=== PATIENT | male | born 1985 | race African-American/Black ===

== ENCOUNTER 2018-06-29 18:52 | Emergency (ER) | payer MEDICAID, OTHER ==
[~2018-06-29] VITALS: Ht 190.5 cm; Wt 79.0 kg
[2018-06-29 21:35] VITALS: BP 127/78
== END 2018-06-29 21:41 | disposition home or self-care (01) ==
LOC: ER 18:52
DX: H61.22 Impacted cerumen, left ear (principal); H66.92 Otitis media, unspecified, left ear; F12.10 Cannabis abuse, uncomplicated
CPT/HCPCS: 69209; 99283

== ENCOUNTER 2018-12-13 18:59 | Emergency (ER) | payer MEDICAID ==
[~2018-12-13] VITALS: Ht 193 cm; Wt 75.0 kg
[2018-12-13 19:08] VITALS: BP 132/65
== END 2018-12-13 20:20 | disposition left against medical advice (07) ==
LOC: ER 18:59
DX: H92.02 Otalgia, left ear (principal); Z53.21 Procedure and treatment not carried out due to patient leaving prior to being seen by health care provider

== ENCOUNTER 2019-09-23 10:52 | Emergency (ER) | payer MEDICAID ==
[~2019-09-23] VITALS: Ht 193 cm; Wt 91.0 kg
[2019-09-23] MEDS ORDERED: IBUPROFEN 600MG TABLET PO ONE (11:30)
[2019-09-23 11:46] VITALS: BP 128/89
== END 2019-09-23 11:53 | disposition home or self-care (01) ==
LOC: ER 10:52
DX: M54.2 Cervicalgia (principal); R03.0 Elevated blood-pressure reading, without diagnosis of hypertension
CPT/HCPCS: 99282

== ENCOUNTER 2021-01-23 08:19 | Emergency (ER) | payer MEDICAID ==
[~2021-01-23] VITALS: Ht 185.4 cm; Wt 58.0 kg
[2021-01-23 09:27] LABS: BASOPHILS % 1.1 % (0.0-2.0); EOSINOPHILS % 2.5 % (0.0-5.0); HEMATOCRIT. 43.7 % (42.0-52.0); HEMOGLOBIN. 14.2 g/dL (14.0-18.0); MEAN CORPUSCULAR HEMOGLOBIN 26.9 pg (28.0-32.0); MEAN CORPUSCULAR VOLUME 82.8 fL (80.0-94.0); MEAN PLATELET VOLUME 8.6 fl (7.4-10.4); MONOCYTES % 7.3 % (2.0-8.0); NEUTROPHILS % 52.1 % (40.0-76.0); PLATELET 205 x1000/uL (130-400); RED BLOOD CELL COUNT 5.28 mill/uL (4.7-6.1); RED CELL DISTRIBUTION WIDTH 15.1 % (11.6-14.6)
[2021-01-23 09:41] LABS: PROTHROMBIN TIME 11.1 sec (9.6-11.0)
[2021-01-23 10:10] VITALS: BP 120/76
== END 2021-01-23 10:10 | disposition home or self-care (01) ==
LOC: ER 08:19
DX: K62.5 Hemorrhage of anus and rectum (principal); R51.9 Headache, unspecified
CPT/HCPCS: 36415; 85025; 93005; 99284

== ENCOUNTER 2024-07-23 09:26 | Emergency (ER) | payer MEDICAID, MEDICARE ==
[~2024-07-23] VITALS: Ht 193 cm; Wt 80.0 kg
[2024-07-23 09:30] VITALS: BP 129/77; TEMP 98.6; O2SAT 99
[2024-07-23 09:31] VITALS: PULSE 87; RESP 18; O2SAT 99
== END 2024-07-23 10:00 | disposition home or self-care (01) ==
LOC: ER 09:26
DX: H92.02 Otalgia, left ear (principal)
CPT/HCPCS: 99281